=== PATIENT | male | born 1985 | race Caucasian/White ===

== ENCOUNTER 2017-06-21 23:00 | Inpatient (IN) | payer BC ==
[2017-06-21 23:24] VITALS: BMI 26.4
[2017-06-21 23:27] LABS: BASOPHIL 0.4 % (0-2.0); EOSINOPHIL 0.7 % (0-4.5); MCH 31.6 pg (25.7-33.7); MCHC 34.8 g/dl (32.0-35.9); MEAN CELL VOLUME 90.8 fl (80-96); MEAN PLT VOLUME 8.9 fl (7.5-11.1); NEUTROPHILS 67.9 % (42.8-82.8); PLATELET COUNT 221 K/MM3 (134-434); RDW 12.4 % (11.9-15.9); WHITE BLOOD COUNT 10.4 K/mm3 (4.0-10.0)
[2017-06-21 23:52] LABS: ALBUMIN 4.1 g/dl (3.4-5.0); AMYLASE 315 U/L (25-115); ANION GAP 10 (8-16); BILIRUBIN,TOTAL 0.5 mg/dL (0.2-1.0); CALCIUM 8.9 mg/dL (8.5-10.1); CO2 28 mmol/L (21-32); CREATININE 0.9 mg/dL (0.7-1.3); GLUCOSE,RANDOM 99 mg/dL (74-106); SGOT/AST 17 U/L (15-37); SGPT/ALT 32 U/L (12-78); TOT PROT 7.6 g/dl (6.4-8.2)
[2017-06-21 23:53] LABS: ALBUMIN 4.2 g/dl (3.4-5.0); ALK PHOS 77 U/L (45-117)
[2017-06-21 23:55] LABS: BILIRUBIN,DIRECT 0.1 mg/dL (0.0-0.2); BILIRUBIN,TOTAL 0.5 mg/dL (0.2-1.0); TOT PROT 7.5 g/dl (6.4-8.2)
--- NOTE | 2017-06-22 00:16 | PDOC ---
History of Present Illness - General History Source: Patient Exam Limitations: No Limitations - History of Present Illness Travel History: No Initial Comments: 06/22/17 00:49 31y M no pmhx presents wiht complaint of intermittent abd pain for the past 5 days, worse yesterday. No associated fever/chills, vomiting,m fever/chills. pt denies worsening of pain with food intake but he did note that he decreased his eating, and sometimes he woul dhave a loose bm after eating. pt endorses drinking socially but not excessively. pt denies any cp, sob, back pain pts pmd is dr. oliveros GI: Dr. Cardoza - pending colonscopy due to hx of rectal bleeding, family hx of crohns <Pierre Buchanan - Last Filed: 06/22/17 00:53> <Lotus Anderson - Last Filed: 06/22/17 01:32> - General Chief Complaint: Pain Stated Complaint: STOMACH PAIN Time Seen by Provider: 06/21/17 23:41 Past History - Past Medical History Other medical history: denies - Suicide/Smoking/Psychosocial Hx Smoking History: Never smoked <Pierre Buchanan - Last Filed: 06/22/17 00:53> <Lotus Anderson - Last Filed: 06/22/17 01:32> - Past Medical History Allergies/Adverse Reactions: Allergies Allergy/AdvReac Type Severity Reaction Status Date / Time No Known Allergies Allergy Verified 06/21/17 23:23 Home Medications: Ambulatory Orders NK [No Known Home Medication] 06/22/17 Review of Systems - Review of Systems Able to Perform ROS?: Yes Comments:: 06/22/17 00:59 Constitutional - no reported Fever, Chills, HEENT: no reported vision changes, sore throat Respiratory: no reported cough, sob, hemoptysis Cardiac: no reported chest pain, palpitations, light headedness, leg swelling Abd/GI: + abd pain no reported, nausea, vomiting, blood per rectum, melena, diarrhea : no reported dysuria, frequency, discharge Musculskelatal - no reported back pain, joint swelling skin - no reported bruising, erythema, rash neurological: no reported headache, numbness, focal weakness, tingling, ataxia, hematologic: no reported anemia, easy bruising, easy bleeding <Pierre Buchanan - Last Filed: 06/22/17 00:53> *Physical Exam - Vital Signs Last Vital Signs Temp Pulse Resp BP Pulse Ox 98.2 F 80 18 130/86 99 06/21/17 23:20 06/21/17 23:20 06/21/17 23:20 06/21/17 23:20 06/21/17 23:20 - Physical Exam Comments: 06/22/17 01:00 GENERAL: The patient is awake, alert, and fully oriented, Nontoxic - in no acute distress. HEAD: Normocephalic, atraumatic. EYES: extraocular movements intact, sclera anicteric, conjunctiva clear. ENT: Normal voice, Moist mucous membranes. NECK: Normal range of motion, supple LUNGS: Breath sounds equal, clear to auscultation bilaterally. No wheezes, no rhonchi, no rales. HEART: Regular rate and rhythm, normal S1 and S2 without murmur, rub or gallop. ABDOMEN: mild epigasstric tenderness normoactive bowel sounds. No guarding, no rebound. . No CVA tenderness EXTREMITIES: Normal range of motion, no edema. No clubbing or cyanosis. No cords, erythema, or tenderness. NEUROLOGICAL: No facial assymetry, Normal speech, PSYCH: Normal mood, normal affect. SKIN: Warm, Dry, normal turgor, <Pierre Buchanan - Last Filed: 06/22/17 00:53> - Vital Signs Last Vital Signs Temp Pulse Resp BP Pulse Ox 98.2 F 80 18 130/86 99 06/21/17 23:20 06/21/17 23:20 06/21/17 23:20 06/21/17 23:20 06/21/17 23:20 <Lotus Anderson - Last Filed: 06/22/17 01:32> ED Treatment Course - LABORATORY CBC & Chemistry Diagram: 06/21/17 23:20 06/21/17 23:20 - ADDITIONAL ORDERS Additional order review: Laboratory Results 06/21/17 06/21/17 23:20 23:20 Sodium 140 Potassium 3.6 Chloride 102 Carbon Dioxide 28 Anion Gap 10 BUN 11 Creatinine 0.9 Creat Clearance w eGFR > 60 Random Glucose 99 Calcium 8.9 Total Bilirubin 0.5 0.5 Direct Bilirubin 0.1 AST 17 17 ALT 32 32 Alkaline Phosphatase 77 77 Total Protein 7.5 7.6 Albumin 4.2 4.1 Total Amylase 315 H Lipase 5799 H 06/21/17 23:20 RBC 4.49 MCV 90.8 MCHC 34.8 RDW 12.4 MPV 8.9 Neutrophils % 67.9 Lymphocytes % 19.9 Monocytes % 11.1 H Eosinophils % 0.7 Basophils % 0.4 <Pierre Buchanan - Last Filed: 06/22/17 00:53> - LABORATORY CBC & Chemistry Diagram: 06/21/17 23:20 06/21/17 23:20 - ADDITIONAL ORDERS Additional order review: Laboratory Results 06/21/17 06/21/17 23:20 23:20 Sodium 140 Potassium 3.6 Chloride 102 Carbon Dioxide 28 Anion Gap 10 BUN 11 Creatinine 0.9 Creat Clearance w eGFR > 60 Random Glucose 99 Calcium 8.9 Total Bilirubin 0.5 0.5 Direct Bilirubin 0.1 AST 17 17 ALT 32 32 Alkaline Phosphatase 77 77 Total Protein 7.5 7.6 Albumin 4.2 4.1 Total Amylase 315 H Lipase 5799 H 06/21/17 23:20 RBC 4.49 MCV 90.8 MCHC 34.8 RDW 12.4 MPV 8.9 Neutrophils % 67.9 Lymphocytes % 19.9 Monocytes % 11.1 H Eosinophils % 0.7 Basophils % 0.4 - Medications Given in the ED: ED Medications Discontinued Medications Generic Name Dose Route Start Last Admin Trade Name Jerryq PRN Reason Stop Dose Admin Morphine Sulfate 2 mg 06/22/17 00:48 06/22/17 00:56 Morphine Injection - IVPUSH 06/22/17 00:49 Not Given ONCE ONE <Lotus Anderson - Last Filed: 06/22/17 01:32> Medical Decision Making - Medical Decision Making 06/22/17 01:00 31y M presenting with interminttent abd pain worse the past day w/o f/c, n/v. on exam pt well appearing, but mild epigastric tenderness noted w/o rebound/ guarding. differential includes gastritis, pancreatitis, gb disease labs notd for pancreatitis no signs of gall stones, cbd diltation on RUQ us pt otherwise well appearing NPO, IVF will admit for further management of pancreatitis cse dw dr. troy agreed with admission will consult dr. cardoza. Case discussed in detail with admitting physician including history, physical exam and ancillary studies. Admitting physician has assumed care for the patient, will follow all pending diagnostics and will complete the evaluation and treatment. <Pierre Buchanan - Last Filed: 06/22/17 00:53> - Medical Decision Making 06/22/17 01:28 Dr. Corral was paged and notified via phone service. <Lotus Anderson - Last Filed: 06/22/17 01:32> *DC/Admit/Observation/Transfer - Discharge Dispostion Admit: Yes <Pierre Buchanan - Last Filed: 06/22/17 00:53> <Lotus Anderson - Last Filed: 06/22/17 01:32> Diagnosis at time of Disposition: Pancreatitis Qualifiers: Chronicity: acute Pancreatitis type: other Acute pancreatitis complication: unspecified Qualified Code(s): K85.80 - Other acute pancreatitis without necrosis or infection - Discharge Dispostion Condition at time of disposition: Guarded - Referrals
[2017-06-22] MEDS ORDERED: SODIUM CHLORIDE 1,000 ML IV ONE (00:39)
[2017-06-22] MEDS ORDERED: morphine CARPU-JECT 2 MG/1 ML DISP.SYRIN IVPUSH ONE (00:48)
[2017-06-22] MEDS ORDERED: morphine CARPU-JECT 4 MG/1 ML DISP.SYRIN ONE (00:52)
[2017-06-22] MEDS ORDERED: morphine CARPU-JECT 4 MG/1 ML DISP.SYRIN IVPUSH PRN (01:05)
[2017-06-22] MEDS ORDERED: ONDANSETRON 4 MG/2 ML VIAL IVPB PRN (01:06)
[2017-06-22] MEDS ORDERED: LACTATED RINGERS SOLUTION 1,000 ML IV SCH (01:15)
[2017-06-22] MEDS: LACTATED RINGERS SOLUTION 1,000 ML IV SCH ×3 (05:34→20:14)
[2017-06-22 07:12] LABS: ANION GAP 4 (8-16); CO2 29 mmol/L (21-32); CREATININE 0.8 mg/dL (0.7-1.3); GLUCOSE,RANDOM 86 mg/dL (74-106)
[2017-06-22 07:16] LABS: BILIRUBIN,DIRECT 0.2 mg/dL (0.0-0.2); BILIRUBIN,TOTAL 0.8 mg/dL (0.2-1.0); C-REACTIVE PROTEIN 3.9 MG/DL (0.00-0.3)
[2017-06-22 07:18] LABS: TOT PROT 7.3 g/dl (6.4-8.2)
[2017-06-22 07:20] LABS: BASOPHIL 0.3 % (0-2.0); EOSINOPHIL 0.6 % (0-4.5); MCH 31.4 pg (25.7-33.7); MCHC 34.3 g/dl (32.0-35.9); MEAN CELL VOLUME 91.5 fl (80-96); MEAN PLT VOLUME 9.7 fl (7.5-11.1); NEUTROPHILS 71.3 % (42.8-82.8); PLATELET COUNT 217 K/MM3 (134-434); RDW 12.3 % (11.9-15.9); WHITE BLOOD COUNT 8.3 K/mm3 (4.0-10.0)
--- NOTE | 2017-06-22 07:56 | HP ---
Admitting History and Physical - Admission Chief Complaint: 31 y.o M presented to ER with epigastric pain. The patient reports that the pain started about a week [employer] and gradually increased. 2days [employer] he developed diarrhea with red blood and Saw Dr Cardoza and colionoscopy was scheduled. The patient remembers that he drank 2 beers 1 week [employer] and 2 weeks [employer] while playing soccer he had a significant trauma to his trank. In the ER-his lipase was 5799 and after US abdomen the patient was admitted for further management. 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: No: Alzheimer's, CVA, Dementia, Migraine, Multiple Sclerosis, Peripheral Neuropathy, Parkinson's, Seizure, Syncope, TIA, Vertigo, Other Cardiovascular: No: AFIB, Aneurysm, Aortic Insufficiency, Aortic Stenosis, CAD, CHF, Deep Vein Thrombosis, HTN, Hyperlipdemia, NH, Mitral Insufficiency, Mitral Stenosis, Murmur, Pulmonary Hypertension, Other Pulmonary: No: Asthma, Bronchitis, Cancer, COPD, O2 Dependent, Pneumonia, Previously Intubated, Pulmonary Embolus, Pulmonary Fibrosis, Sleep Apnea, Other Gastrointestinal: Yes: GI Bleed, Pancreatitis Hepatobiliary: No: Cirrhosis, Cholelithiasis, Cholecystitis, Choledocholithiasis , Hepatitis A, Hepatitis B, Hepatitis C, Other Renal/: No: Renal Failure, Renal Inusuff, BPH, Cancer, Hematuria, Hemodialysis , Neurogenic Bladder, Renal Calculi, UTI, Other Heme/Onc: No: Anemia, B12 Deficiency, Bleeding Disorder, Cancer, Current Chemotherapy, Current Radiation Therapy, Hemochromatosis, Hypercoaguable State, Myeloproliferative Synd, Sickle Cell Disease, Sickle Cell Trait, Thrombocytopenia, Other Infectious Disease: No: AIDS, C-Diff, Herpes Zoster, HIV, MRSA, STD's, Tuberculosis, VREF, Other Psych: No: Addictions, Anxiety, Bipolar, Depression, Panic, Psychosis, Schizophrenia, Other Musculoskeletal: No: Bursitis, Chronic low back pain, Hemiparesis, Hemiplegia, Osteoarthritis, Paraplegia, Other Rheumatology: No: Fibromyalgia, Gout, Lupus, Rheumatoid Arthritis, Sarcoidosis, Vasculitis, Other ENT: No: Allergic Rhinitis, Sinusitis, Other Endocrine: No: Mccook's Disease, [place]'s Disease, Diabetes Insipidus, Diabetes Mellitus, Hyperparathyroidism, Hyperthyroidism, Hypothyroidism, Osteopenia, SIADH, Other - Past Surgical History Past Surgical History: No: None, AAA Repair, AICD, Amputation, Appendectomy, Arthrosocopy, AV Fistula/Graft, Bariatric Surgery, Breast Biopsy, Bypass, CABG, Carotid Endarterectomy, Cataract Removal, Cholecystectomy, Colectomy, Colonoscopy, Colostomy, Craniotomy, , Cystectomy, Hernia Repair, Hysterectomy, Ileal Conduit, Ileosotomy, Joint Replacement, Kidney Transplant, Laminectomy, Liver Transplant, Mastectomy, Nephrectomy, Oopherectomy, Orchiectomy, Permanent Pacemaker, Prostatectomy, Splenectomy, Stent, Thoracotomy , TURP, Tonsillectomy, Tubal Ligation, Upper Endoscopy, Valve Replacement, Vasectomy, Vein Stripping/Ligation - Advance Directives Advance Directives: No: Living Will, Health Care Proxy, DNR, Organ Donor, Tissue Donor, MOLST - Smoking History Smoking history: Never smoked - Alcohol/Substance Use Hx Alcohol Use: Yes (socially) History of Substance Use: reports: None Home Medications - Allergies Allergies/Adverse Reactions: Allergies Allergy/AdvReac Type Severity Reaction Status Date / Time No Known Allergies Allergy Verified 06/21/17 23:23 - Home Medications Home Medications: Ambulatory Orders NK [No Known Home Medication] 06/22/17 Family Disease History - Family Disease History Family Disease History: Other: Mother (CROHN's disease) Review of Systems - Review of Systems Constitutional: reports: No Symptoms Eyes: reports: No Symptoms HENT: reports: No Symptoms Neck: reports: No Symptoms Cardiovascular: reports: No Symptoms Respiratory: reports: No Symptoms Gastrointestinal: reports: Abdominal Pain, Diarrhea, Rectal Bleeding, Vomiting. denies: Vomiting Blood Genitourinary: reports: No Symptoms Breasts: reports: No Symptoms Reported Musculoskeletal: reports: No Symptoms Integumentary: reports: No Symptoms Neurological: reports: No Symptoms Endocrine: reports: No Symptoms Hematology/Lymphatic: reports: No Symptoms Psychiatric: reports: No Symptoms Physical Examination Vital Signs: Vital Signs Temperature 97.5 F L 06/22/17 03:20 Pulse Rate 68 06/22/17 03:20 Respiratory Rate 18 06/22/17 03:20 Blood Pressure 122/66 06/22/17 03:20 O2 Sat by Pulse Oximetry (%) 99 06/22/17 03:17 Constitutional: Yes: Well Nourished, Anxious, Mild Distress Eyes: Yes: Conjunctiva Clear, EOM Intact HENT: Yes: Atraumatic, Normocephalic. No: Drooling Neck: Yes: Supple, Trachea Midline Cardiovascular: Yes: Regular Rate and Rhythm. No: Bradycardia, Tachycardia Respiratory: Yes: Regular, CTA Bilaterally. No: Accessory Muscle Use, Cough Gastrointestinal: Yes: Soft, Tenderness, Tenderness, Epigastrium. No: Abdomen, Obese, Ascites, Distention, Hepatomegaly, Splenomegaly, Tenderness, Rebound ...Rectal Exam: Yes: Deferred Renal/: No: Anuria, Bladder Distention, CVA Tenderness - Left, CVA Tenderness - Right Breast(s): Yes: WNL Musculoskeletal: Yes: WNL Extremities: Yes: WNL Edema: No Peripheral Pulses WNL: Yes Integumentary: Yes: WNL Neurological: Yes: WNL ...Motor Strength: WNL Psychiatric: Yes: WNL Labs: CBC, BMP 06/22/17 06:00 06/22/17 06:00 Laboratory Results - last 24 hr 06/21/17 06/21/17 06/21/17 23:20 23:20 23:20 WBC 10.4 H RBC 4.49 Hgb 14.2 Hct 40.7 MCV 90.8 MCH 31.6 MCHC 34.8 RDW 12.4 Plt Count 221 MPV 8.9 Neutrophils % 67.9 Lymphocytes % 19.9 Monocytes % 11.1 H Eosinophils % 0.7 Basophils % 0.4 Sodium 140 Potassium 3.6 Chloride 102 Carbon Dioxide 28 Anion Gap 10 BUN 11 Creatinine 0.9 Creat Clearance w eGFR > 60 Random Glucose 99 Calcium 8.9 Total Bilirubin 0.5 0.5 Direct Bilirubin 0.1 AST ALT 32 32 Alkaline Phosphatase 77 77 C-Reactive Protein Total Protein 7.6 7.5 Albumin 4.1 4.2 Triglycerides Total Amylase 315 H Lipase 5799 H Alcohol, Quantitative 06/22/17 06/22/17 06/22/17 03:17 03:17 06:00 WBC RBC Hgb Hct MCV MCH MCHC RDW Plt Count MPV Neutrophils % Lymphocytes % Monocytes % Eosinophils % Basophils % Sodium Potassium Chloride Carbon Dioxide Anion Gap BUN Creatinine Creat Clearance w eGFR Random Glucose Calcium Total Bilirubin Direct Bilirubin AST ALT Alkaline Phosphatase C-Reactive Protein Total Protein Albumin Triglycerides 67 Total Amylase Lipase 3350 H Alcohol, Quantitative < 5.0 06/22/17 06/22/17 06/22/17 06:00 06:00 06:00 WBC 8.3 RBC 4.48 Hgb 14.0 Hct 41.0 MCV 91.5 MCH 31.4 MCHC 34.3 RDW 12.3 Plt Count 217 MPV 9.7 Neutrophils % 71.3 Lymphocytes % 18.4 Monocytes % 9.4 Eosinophils % 0.6 Basophils % 0.3 Sodium 139 Potassium 3.9 Chloride 106 Carbon Dioxide 29 Anion Gap 4 L BUN 9 Creatinine 0.8 Creat Clearance w eGFR Random Glucose 86 Calcium 9.0 Total Bilirubin 0.8 D Direct Bilirubin 0.2 D AST 17 ALT 32 Alkaline Phosphatase 79 C-Reactive Protein 3.9 H Total Protein 7.3 Albumin 4.0 Triglycerides 75 Total Amylase Lipase Alcohol, Quantitative Imaging - Results Ultrasound: Image Reviewed Problem List - Problems (1) Acute pancreatitis Assessment/Plan: Negative alcohol level, normal triglycerides noted. R/o Infection, viral, etc Official US report -P Family Hx of Crohn's disease. R/o Autoimmune etiology.. Continue NPO, IV fluids Pain management GI f/u MRCP Code(s): K85.90 - ACUTE PANCREATITIS WITHOUT NECROSIS OR INFECTION, UNSP Qualifiers: Pancreatitis type: unspecified pancreatitis type
--- NOTE | 2017-06-22 09:28 | CON.GI ---
Consult Consult Specialty:: GI: Dr. Corral covering for Drs. Tao / Sony Referred by:: Dr. Moreland Reason for Consultation:: Abdominal Pain - History of Present Illness Chief Complaint: I had pain in my stomach History of Present Illness: 31M admitted through [facility] for evaluation of abdominal pain. Vazquez tells me that he was in his USOH up until 2-3 days ago when he developed mid to lower abdominal pain. The pain was sharp and intermittent when it started, however became constant yesterday prompting his ER evaluation last night. Triage vitals revealed: T: 98.2 P: 80 BP: 130/86. Labs revealed a mild leukocytosis and elevated amylase and lipase of 315 and 3350 respectively suggesting an acute pancreatitis. Prior to this he had seen Dr. Cardoza on friday who was going to arrange a colonoscopy for evaluation given Vazquez's complaints of diarrhea and family history of Crohn's Disease. Pain is currently improved. He denies heavy regular alcohol consumptions and believes that he last drank beer last weekend after playing soccer. He has never had similar episodes in the past and there is no family history of pancreatitis, colorectal cancer or other GI malignancy. he denies unintentional weight loss, fevers/chills. 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 No family history of colorectal cancer or other GI malignancy Review of Systems - Review of Systems Constitutional: denies: Chills, Fever Gastrointestinal: reports: Abdominal Pain, Diarrhea (resolved last week), Rectal Bleeding (this past friday). denies: Bloating, Constipation Physical Exam-GI Vital Signs: Vital Signs Temperature 97.5 F L 06/22/17 03:20 Pulse Rate 68 06/22/17 03:20 Respiratory Rate 18 06/22/17 03:20 Blood Pressure 122/66 06/22/17 03:20 O2 Sat by Pulse Oximetry (%) 99 06/22/17 03:17 Constitutional: Yes: Calm Eyes: No: Sclera Icterus Cardiovascular: Yes: Regular Rate and Rhythm. No: Murmur Respiratory: Yes: CTA Bilaterally Gastrointestinal Inspection: No: Scars ...Auscultate: Yes: Normoactive Bowel Sounds ...Palpate: Yes: Guarding (voluntary guarding), Tenderness (TTP mid/upper abdomen). No: Hepatomegaly, Splenomegaly ...Percussion: No: Tympanitic Edema: No Neurological: Yes: Alert, Oriented Labs: CBC, BMP 06/22/17 06:00 06/22/17 06:00 Hepatic Panel Total Bilirubin 0.8 mg/dL (0.2-1.0) D 06/22/17 06:00 Direct Bilirubin 0.2 mg/dL (0.0-0.2) D 06/22/17 06:00 AST 17 U/L (15-37) 06/22/17 06:00 ALT 32 U/L (12-78) 06/22/17 06:00 Alkaline Phosphatase 79 U/L (45-117) 06/22/17 06:00 Albumin 4.0 g/dl (3.4-5.0) 06/22/17 06:00 Laboratory Tests 06/21/17 06/22/17 06/22/17 23:20 03:17 06:00 Triglycerides 67 Total Amylase 315 H Lipase 5799 H 3350 H Imaging - Results Ultrasound: Report Reviewed (3-4mm GB polyp vs. adherent calculus) Problem List - Problems (1) Acute pancreatitis Assessment/Plan: 1st episode: LFT pattern not suggestive of biliary etiology and triglycerides normal. Also The ? GB polyp vs. adherent calclulus will need outpatient follow-up. If no other etiology identifyable, elective cholecystectomy could be considered. For MRI/MRCP IV hydration: increased lactated ringers to 200cc/hr AM labs Code(s): K85.90 - ACUTE PANCREATITIS WITHOUT NECROSIS OR INFECTION, UNSP Qualifiers: Pancreatitis type: unspecified pancreatitis type
[2017-06-23] MEDS: LACTATED RINGERS SOLUTION 1,000 ML IV SCH ×5 (02:57→18:20)
[2017-06-23 07:47] LABS: BASOPHIL 0.5 % (0-2.0); EOSINOPHIL 1.2 % (0-4.5); MCH 31.2 pg (25.7-33.7); MCHC 34.2 g/dl (32.0-35.9); MEAN CELL VOLUME 91.3 fl (80-96); MEAN PLT VOLUME 9.1 fl (7.5-11.1); PLATELET COUNT 205 K/MM3 (134-434); RDW 12.2 % (11.9-15.9); WHITE BLOOD COUNT 6.7 K/mm3 (4.0-10.0)
--- NOTE | 2017-06-23 08:12 | PN ---
Progress Note (short form) - Note Progress Note: Ruq pain and epigastric pain slightly improved. NO VOMITING Laboratory Results - last 24 hr 06/23/17 07:00 WBC 6.7 RBC 4.33 Hgb 13.5 Hct 39.5 MCV 91.3 MCH 31.2 MCHC 34.2 RDW 12.2 Plt Count 205 MPV 9.1 Neutrophils % 64.0 Lymphocytes % 23.9 D Monocytes % 10.4 H Eosinophils % 1.2 D Basophils % 0.5 WBC down to 6k MRCP-MARKED FOCAL LUMINAL NARROWING INVOLVING CBD-0.7 CM IN LENGTH AT THE LEVEL OF SUPERIOR BORDER OF THE PANCREAS. Vital Signs Temp 97.2 F L 06/23/17 07:06 Pulse 59 L 06/23/17 07:06 Resp 18 06/23/17 07:06 BP 104/73 06/23/17 07:06 Pulse Ox 99 06/22/17 21:00 Intake & Output 06/22/17 06/22/17 06/23/17 11:59 23:59 11:59 Intake Total 500 1600 1700 Balance 500 1600 1700 Weight 175 lb 6.4 oz Intake: IV 500 1600 1700 Lactated Ringers Solution 200 1,000 ml @ 100 mls/hr IV ASDIR PAOLO Rx#: [id number] Lactated Ringers Solution 300 1600 1,000 ml @ 200 mls/hr IV ASDIR PAOLO Rx#: [id number] Lactated Ringers Solution 1700 1,000 ml @ 150 mls/hr IV ASDIR PAOLO Rx#: [id number] Other: Voiding Method Toilet Toilet # Unmeasured Voids Void 1 1 Bowel Movement No No Height 5 ft 9 in Body Mass Index (BMI) 26.4 Weight Measurement Method [facility] lUNGS CLEAR hEART s1s2 REGULAR ABDOMEN SOFT, ruq, EPIGASTRIC TENDERNESS EXT-NO CCE Laboratory Results - last 24 hr 06/23/17 07:00 WBC 6.7 RBC 4.33 Hgb 13.5 Hct 39.5 MCV 91.3 MCH 31.2 MCHC 34.2 RDW 12.2 Plt Count 205 MPV 9.1 Neutrophils % 64.0 Lymphocytes % 23.9 D Monocytes % 10.4 H Eosinophils % 1.2 D Basophils % 0.5 CMP-P Current Active Problems Problem Status Diagnosed Acute pancreatitis Acute Pancreatitis Acute PLAN IV FLUIDS GI F/U CLEAR LIQUIDS Problem List - Problems (1) Acute pancreatitis Code(s): K85.90 - ACUTE PANCREATITIS WITHOUT NECROSIS OR INFECTION, UNSP Qualifiers: Pancreatitis type: unspecified pancreatitis type
[2017-06-23 08:19] LABS: ALBUMIN 3.3 g/dl (3.4-5.0); ALK PHOS 64 U/L (45-117); ANION GAP 5 (8-16); BILIRUBIN,TOTAL 0.5 mg/dL (0.2-1.0); CALCIUM 8.7 mg/dL (8.5-10.1); CO2 29 mmol/L (21-32); CREATININE 0.7 mg/dL (0.7-1.3); GLUCOSE,RANDOM 77 mg/dL (74-106); SGOT/AST 14 U/L (15-37); SGPT/ALT 26 U/L (12-78); TOT PROT 6.4 g/dl (6.4-8.2)
--- NOTE | 2017-06-23 10:05 | PN ---
GI Progress Note Subjective: Abdominal pain still present, Vazquez states that it may be a bit better today No acute events MRI/MRCP performef: 7mm luminal narrowing of the CBD proximal to the head of the pancreas without more proximal ductal dilatation. No stones noted on MRCP study Some upper abdominal burning after clears yesterday - Objective Vital Signs: Vital Signs Temperature 97.2 F L 06/23/17 07:06 Pulse Rate 59 L 06/23/17 07:06 Respiratory Rate 18 06/23/17 07:06 Blood Pressure 104/73 06/23/17 07:06 O2 Sat by Pulse Oximetry (%) 99 06/22/17 21:00 Constitutional: Calm Eyes: No: Sclera Icterus Cardiovascular: Yes: Regular Rate and Rhythm Respiratory: Yes: CTA Bilaterally Gastrointestinal Inspection: No: Distention ...Auscultate: Yes: Normoactive Bowel Sounds ...Palpate: Yes: Tenderness (TTP mid upper abdomen) ...Percussion: No: Tympanitic Edema: No Neurological: Yes: Alert, Oriented Labs: CBC, BMP 06/23/17 07:00 06/23/17 07:00 - ....Imaging MRI: Report Reviewed, Image Reviewed Problem List - Problems (1) Acute pancreatitis Assessment/Plan: Clinically improved however still with tendeness to palpation in upper abdomen Continue IV fluids NPO for now with IV hydration. If pain improved advance diet in AM D/W Dr. Ho Simon today. No ERCP planned as of yet but advised follow-up as outpatient once acute issues are resolved for further eval of biliary structure. Unclear etiology of striucture. ? passage of stone w/ trauma however proximal ductal system not dilated. ? alternate etiology. I explained this to Vazquez. He has a plan tripped to [facility] later this month. I advised that he should consider postponing trip until he is followed up and has further evaluation. MRI report and well as US and lab work faxed to Dr. Tao's office. AM labs Code(s): K85.90 - ACUTE PANCREATITIS WITHOUT NECROSIS OR INFECTION, UNSP Qualifiers: Pancreatitis type: unspecified pancreatitis type
[2017-06-24] MEDS: LACTATED RINGERS SOLUTION 1,000 ML IV SCH ×2 (02:00→09:04)
[2017-06-24 07:33] LABS: BASOPHIL 0.3 % (0-2.0); EOSINOPHIL 0.7 % (0-4.5); MCHC 35.1 g/dl (32.0-35.9); MEAN PLT VOLUME 9.3 fl (7.5-11.1); NEUTROPHILS 73.4 % (42.8-82.8); PLATELET COUNT 219 K/MM3 (134-434); RDW 12.2 % (11.9-15.9); WHITE BLOOD COUNT 8.6 K/mm3 (4.0-10.0)
[2017-06-24 07:51] LABS: ANION GAP 7 (8-16); CALCIUM 8.8 mg/dL (8.5-10.1); CO2 30 mmol/L (21-32); CREATININE 0.8 mg/dL (0.7-1.3); GLUCOSE,RANDOM 73 mg/dL (74-106)
[2017-06-24 07:55] LABS: ALBUMIN 3.4 g/dl (3.4-5.0); ALK PHOS 64 U/L (45-117); ANION GAP 9 (8-16); BILIRUBIN,TOTAL 0.6 mg/dL (0.2-1.0); CALCIUM 8.8 mg/dL (8.5-10.1); CO2 30 mmol/L (21-32); CREATININE 0.7 mg/dL (0.7-1.3); GLUCOSE,RANDOM 70 mg/dL (74-106); SGOT/AST 11 U/L (15-37); SGPT/ALT 25 U/L (12-78); TOT PROT 6.5 g/dl (6.4-8.2)
[2017-06-24 11:41] VITALS: BP 133/66; PULSE 70; TEMP 98.2
--- NOTE | 2017-06-24 13:05 | PN ---
Progress Note (short form) - Note Progress Note: Feels well, no significant epigastric pain. I spoke to Dr redding today and discussed the future management. The patient will need further w/u as outpt to r/o IBD and PSC. Vital Signs (72 hours) 06/21/17 06/22/17 06/22/17 23:20 02:30 03:17 Temperature 98.2 F 97.5 F L Pulse Rate 80 68 Respiratory 18 18 Rate Blood Pressure 130/86 122/66 O2 Sat by Pulse 99 99 Oximetry (%) 06/22/17 06/22/17 06/22/17 03:20 10:00 14:50 Temperature 97.5 F L 97.6 F 98.2 F Pulse Rate 68 69 61 Respiratory 18 18 18 Rate Blood Pressure 122/66 110/58 109/59 O2 Sat by Pulse 99 Oximetry (%) 06/22/17 06/22/17 06/22/17 16:59 21:00 22:00 Temperature 97.5 F L 98.0 F Pulse Rate 64 69 Respiratory 20 18 Rate Blood Pressure 112/51 115/56 O2 Sat by Pulse 99 Oximetry (%) 06/23/17 06/23/17 06/23/17 07:06 09:00 14:48 Temperature 97.2 F L 98.0 F Pulse Rate 59 L 61 Respiratory 18 16 Rate Blood Pressure 104/73 117/66 O2 Sat by Pulse 100 Oximetry (%) 06/23/17 06/23/17 06/23/17 16:15 18:10 21:00 Temperature 98.6 F 98.1 F Pulse Rate 79 62 Respiratory 16 18 Rate Blood Pressure 117/74 136/64 O2 Sat by Pulse 100 Oximetry (%) 06/23/17 06/24/17 06/24/17 22:00 06:00 10:09 Temperature 97.9 F 97.9 F 97.5 F L Pulse Rate 64 57 L 75 Respiratory 18 18 18 Rate Blood Pressure 128/65 99/44 138/75 O2 Sat by Pulse Oximetry (%) 06/24/17 11:40 Temperature 98.2 F Pulse Rate 70 Respiratory 17 Rate Blood Pressure 133/66 O2 Sat by Pulse Oximetry (%) Ambulates in the room well. Lungs clear Heart S1S2 regular Abom soft, active BS NO CCE Laboratory Results - last 24 hr 1006/24/17 06/24/17 12:22 06:30 06:30 WBC RBC Hgb Hct MCV MCH MCHC RDW Plt Count MPV Neutrophils % Lymphocytes % Monocytes % Eosinophils % Basophils % Sodium 140 139 Potassium 3.9 3.9 Chloride 101 102 Carbon Dioxide 30 30 Anion Gap 9 7 L BUN 7 7 Creatinine 0.7 0.8 Creat Clearance w eGFR > 60 Random Glucose 70 L 73 L Calcium 8.8 8.8 Total Bilirubin 0.6 AST 11 L D ALT 25 Alkaline Phosphatase 64 C-Reactive Protein 2.0 H D Total Protein 6.5 Albumin 3.4 Lipase 1855 H IgG4 98 H 06/24/17 06:30 WBC 8.6 RBC 4.39 Hgb 14.0 Hct 40.0 MCV 91.0 MCH 32.0 MCHC 35.1 RDW 12.2 Plt Count 219 MPV 9.3 Neutrophils % 73.4 Lymphocytes % 16.5 D Monocytes % 9.1 Eosinophils % 0.7 Basophils % 0.3 Sodium Potassium Chloride Carbon Dioxide Anion Gap BUN Creatinine Creat Clearance w eGFR Random Glucose Calcium Total Bilirubin AST ALT Alkaline Phosphatase C-Reactive Protein Total Protein Albumin Lipase IgG4 Current Active Problems Problem Status Diagnosed Acute pancreatitis Acute Pancreatitis Acute Plan D/c Home Diet low fat, gradually advancing. no ETOH. Colonoscopy to r/o IBD Problem List - Problems (1) Acute pancreatitis Code(s): K85.90 - ACUTE PANCREATITIS WITHOUT NECROSIS OR INFECTION, UNSP Qualifiers: Pancreatitis type: unspecified pancreatitis type
--- NOTE | 2017-06-24 13:06 | DS ---
Physical Examination Vital Signs: Vital Signs Temperature 98.2 F 06/24/17 11:40 Pulse Rate 70 06/24/17 11:40 Respiratory Rate 17 06/24/17 11:40 Blood Pressure 133/66 06/24/17 11:40 O2 Sat by Pulse Oximetry (%) 100 06/23/17 21:00 Constitutional: Yes: Well Nourished, No Distress, Calm Eyes: Yes: Conjunctiva Clear, EOM Intact HENT: Yes: Atraumatic, Normocephalic Neck: Yes: Supple, Trachea Midline Cardiovascular: Yes: Regular Rate and Rhythm Respiratory: Yes: Regular, CTA Bilaterally Gastrointestinal: Yes: Normal Bowel Sounds, Soft, Tenderness (epigastrium). No : Abdomen, Obese, Vomiting Renal/: No: Anuria Edema: No Integumentary: Yes: WNL Neurological: Yes: WNL ...Motor Strength: WNL Psychiatric: Yes: WNL Labs: CBC, BMP 06/24/17 06:30 06/24/17 06:30 Laboratory Results - last 24 hr 06/22/17 06/24/17 06/24/17 12:22 06:30 06:30 WBC RBC Hgb Hct MCV MCH MCHC RDW Plt Count MPV Neutrophils % Lymphocytes % Monocytes % Eosinophils % Basophils % Sodium 140 139 Potassium 3.9 3.9 Chloride 101 102 Carbon Dioxide 30 30 Anion Gap 9 7 L BUN 7 7 Creatinine 0.7 0.8 Creat Clearance w eGFR > 60 Random Glucose 70 L 73 L Calcium 8.8 8.8 Total Bilirubin 0.6 AST 11 L D ALT 25 Alkaline Phosphatase 64 C-Reactive Protein 2.0 H D Total Protein 6.5 Albumin 3.4 Lipase 1855 H IgG4 98 H 06/24/17 06:30 WBC 8.6 RBC 4.39 Hgb 14.0 Hct 40.0 MCV 91.0 MCH 32.0 MCHC 35.1 RDW 12.2 Plt Count 219 MPV 9.3 Neutrophils % 73.4 Lymphocytes % 16.5 D Monocytes % 9.1 Eosinophils % 0.7 Basophils % 0.3 Sodium Potassium Chloride Carbon Dioxide Anion Gap BUN Creatinine Creat Clearance w eGFR Random Glucose Calcium Total Bilirubin AST ALT Alkaline Phosphatase C-Reactive Protein Total Protein Albumin Lipase IgG4 Discharge Summary Reason For Visit: acute PANCREATITIS, CBD stricture Current Active Problems Acute pancreatitis (Acute) Pancreatitis (Acute) Condition: Improved - Instructions Referrals: Jordi Tao MD [Staff Physician] - 1 Week Estiven Moreland MD [Primary Care Provider] - Disposition: HOME - Home Medications Comprehensive Discharge Medication List: Ambulatory Orders NK [No Known Home Medication] 06/22/17
== END 2017-06-24 14:00 | disposition home or self-care (01) | DRG 440 ==
LOC: JER 23:00 → JERBED 06-22 00:53 → J8W 06-22 02:52
PROVIDERS: ADMIT Internal Medicine; ATTEND Internal Medicine
DX: K85.90 Acute pancreatitis without necrosis or infection, unspecified (principal)
CPT/HCPCS: 36415; 74183-TC; 76705-TC; 80048; 80053; 80076; 80307; 82150; 82787; 83690; 84478; 85025; 86038; 86140; 99281-25

== ENCOUNTER 2017-07-11 08:04 | Day surgery (SDC) | payer BC ==
[2017-07-10 13:44] VITALS: BMI 25.4
[2017-07-11 08:33] VITALS: TEMP 97.8
[2017-07-11] MEDS ORDERED: LIDOCAINE HCL/PF 2% SDV 5ML VIAL ONE (08:34)
[2017-07-11] MEDS ORDERED: PROPOFOL 20 ML ONE ×5 (08:34)
[2017-07-11] MEDS ORDERED: ePHEDrine SULFATE 50 MG/1 ML AMPULE ONE (08:34)
[2017-07-11 09:51] VITALS: PULSE 65
[2017-07-11 10:23] VITALS: BP 119/65
--- NOTE | 2017-07-14 16:18 | PATH ---
Surgical Pathology Report Patient Name: CASTILLO RIZVI [facility]. Rec. #: [id number] /Age/Gender: 1985 (Age: 31) / M Account: [id number] Location: [facility]-ENDOSCOPY Taken: 07/11/2017 Received: 07/11/2017 Reported: 07/14/2017 Physicians: Jordi Tao M.D. Specimen(s) Received A: BX DUODENUM B: BX ANTRUM AND BODY C: BX ILEUM D: BX CECUM E: BX RIGHT COLON F: BX HEPATIC FLEXURE G: SPLENIC FLEXURE BIOPSY H: BX DESCENDING COLON I: BX SIGMOID J: BX RECTUM Clinical History Weight loss, occult bleeding, diarrhea Atrophic gastritis, colitis with aphthous ulcer Final Diagnosis A. DUODENUM, BIOPSY: SMALL BOWEL/DUODENAL MUCOSA WITH MILD CHRONIC ACTIVE INFLAMMATION. NO GRANULOMA OR DYSPLASIA IDENTIFIED. B. STOMACH, ANTRUM AND BODY, BIOPSY: GASTRIC ANTRAL AND BODY MUCOSA MILD CHRONIC ACTIVE INFLAMMATION. NO GRANULOMA OR DYSPLASIA IDENTIFIED. IMMUNOHISTOCHEMICAL STAIN FOR H. PYLORI IS NEGATIVE. C. ILEUM, BIOPSY: SMALL BOWEL/ILEAL MUCOSA WITH MILD CHRONIC ACTIVE INFLAMMATION. NO GRANULOMA OR DYSPLASIA IDENTIFIED. D. CECUM, BIOPSY: COLONIC MUCOSA WITH MILD ACTIVE COLITIS. NO GRANULOMA OR DYSPLASIA IDENTIFIED. E. COLON, RIGHT, BIOPSY: COLONIC MUCOSA WITH MODERATE ACTIVE COLITIS. NO GRANULOMA OR DYSPLASIA IDENTIFIED. F. HEPATIC FLEXURE, BIOPSY: COLONIC MUCOSA WITH MODERATE ACTIVE COLITIS. NO GRANULOMA OR DYSPLASIA IDENTIFIED. G. SPLENIC FLEXURE, BIOPSY: COLONIC MUCOSA WITH MODERATE ACTIVE COLITIS AND CRYPT ABSCESS. NO GRANULOMA OR DYSPLASIA IDENTIFIED. H. DESCENDING COLON, BIOPSY: COLONIC MUCOSA WITH MODERATE ACTIVE COLITIS AND CRYPT ABSCESS. NO GRANULOMA OR DYSPLASIA IDENTIFIED. I. SIGMOID, BIOPSY: COLONIC MUCOSA WITH MODERATE ACTIVE COLITIS AND CRYPT ABSCESS. NO GRANULOMA OR DYSPLASIA IDENTIFIED. J. RECTUM, BIOPSY: COLONIC MUCOSA WITH MODERATE ACTIVE COLITIS AND CRYPT ABSCESS. NO GRANULOMA OR DYSPLASIA IDENTIFIED. COMMENT: Although findings may represent non-specific acute colitis, the possibility of early stage inflammatory bowel disease (IBD) cannot be completely ruled out. Suggest clinical/radiologic correlation. Manage and follow-up as clinically indicated. Electronically Signed Antionette Ayala M.D. Gross Description A. Received in formalin, labeled "biopsy second portion of duodenum and duodenal bulb" are 3 arnett, irregular portions of soft tissue ranging from 0.3-0.4 cm. in greatest dimension. The specimens are submitted in toto in one cassette. B. Received in formalin, labeled "biopsy antrum and body" are 6 arnett, irregular portions of soft tissue ranging from 0.2-0.4 cm. in greatest dimension. The specimens are submitted in toto in one cassette. C. Received in formalin, labeled "biopsy ileum" are 3 arnett, irregular portions of soft tissue averaging 0.3 cm. in greatest dimension. The specimens are submitted in toto in one cassette. D. Received in formalin, labeled "biopsy cecum" are 5 arnett, irregular portions of soft tissue ranging from 0.2-0.4 cm. in greatest dimension. The specimens are submitted in toto in one cassette. E. Received in formalin, labeled "biopsy right colon" is a arnett, irregular portion of soft tissue measuring 0.9 cm. in greatest dimension. The specimen is submitted in toto in one cassette. F. Received in formalin, labeled "biopsy hepatic flexure" are 7 arnett, irregular portions of soft tissue ranging from 0.1-0.5 cm. in greatest dimension. The specimens are submitted in toto in one cassette. G. Received in formalin, labeled "biopsy splenic flexure" are 5 arnett, irregular portions of soft tissue ranging from 0.1-0.4 cm. in greatest dimension. The specimens are submitted in toto in one cassette. H. Received in formalin, labeled "biopsy descending colon" are 4 arnett, irregular portions of soft tissue ranging from 0.2-0.6 cm. in greatest dimension. The specimens are submitted in toto in one cassette. I. Received in formalin, labeled "biopsy sigmoid" are 3 arnett, irregular portions of soft tissue averaging 0.3 cm. in greatest dimension. The specimens are submitted in toto in one cassette. J. Received in formalin, labeled "biopsy rectum" are 4 arnett, irregular portions of soft tissue ranging from 0.2-0.3 cm. in greatest dimension. The specimens are submitted in toto in one cassette. 07/11/2017 saudi07/11/2017
== END 2017-07-11 10:30 | disposition home or self-care (01) ==
LOC: JASU-ENDO 08:04
PROVIDERS: ATTEND Internal Medicine Gastroenterology
PROC: 0DBL8ZX Excision of Transverse Colon, Via Natural or Artificial Opening Endoscopic, Diagnostic (ICD-10-PCS; 2017-07-11)
PROC: 0DBN8ZX Excision of Sigmoid Colon, Via Natural or Artificial Opening Endoscopic, Diagnostic (ICD-10-PCS; 2017-07-11)
PROC: 0DBF8ZX Excision of Right Large Intestine, Via Natural or Artificial Opening Endoscopic, Diagnostic (ICD-10-PCS; 2017-07-11)
PROC: 0DBG8ZX Excision of Left Large Intestine, Via Natural or Artificial Opening Endoscopic, Diagnostic (ICD-10-PCS; 2017-07-11)
PROC: 0DBB8ZX Excision of Ileum, Via Natural or Artificial Opening Endoscopic, Diagnostic (ICD-10-PCS; 2017-07-11)
PROC: 0DBM8ZX Excision of Descending Colon, Via Natural or Artificial Opening Endoscopic, Diagnostic (ICD-10-PCS; 2017-07-11)
PROC: 0DBH8ZX Excision of Cecum, Via Natural or Artificial Opening Endoscopic, Diagnostic (ICD-10-PCS; 2017-07-11)
PROC: 0DB98ZX Excision of Duodenum, Via Natural or Artificial Opening Endoscopic, Diagnostic (ICD-10-PCS; 2017-07-11)
PROC: 0DB68ZX Excision of Stomach, Via Natural or Artificial Opening Endoscopic, Diagnostic (ICD-10-PCS; 2017-07-11)
PROC: 0DBK8ZX Excision of Ascending Colon, Via Natural or Artificial Opening Endoscopic, Diagnostic (ICD-10-PCS; principal; 2017-07-11 09:00)
DX: K52.9 Noninfective gastroenteritis and colitis, unspecified (principal); R63.4 Abnormal weight loss; R10.13 Epigastric pain; K63.3 Ulcer of intestine
CPT/HCPCS: 87045; 87046; 88305-TC; 88342-TC

== ENCOUNTER 2021-07-13 04:52 | Day surgery (SDC) | payer BC ==
[2021-07-11 14:05] VITALS: BMI 29.2
[2021-07-13 10:35] VITALS: BP 105/65; PULSE 62; TEMP 98
== END 2021-07-13 10:35 | disposition home or self-care (01) ==
LOC: JASU-ENDO 04:52
PROVIDERS: ATTEND Internal Medicine Gastroenterology
PROC: 0DBP8ZX Excision of Rectum, Via Natural or Artificial Opening Endoscopic, Diagnostic (ICD-10-PCS; principal; 2021-07-13 09:00)
DX: Z12.11 Encounter for screening for malignant neoplasm of colon (principal); K62.1 Rectal polyp; K51.80 Other ulcerative colitis without complications